=== PATIENT | female | born 1965 | race Two or more races ===

== ENCOUNTER 2018-11-06 18:36 | Emergency (ER) | payer OTHER ==
[~2018-11-06] VITALS: Ht 170.2 cm; Wt 68.9 kg
[2018-11-06] MEDS ORDERED: VITAMIN D5000 UNIT (18:43)
[2018-11-06] MEDS ORDERED: VITAMIN C1000 MG (18:43)
[2018-11-06] MEDS ORDERED: MEDROLPACK (22:42)
[2018-11-06] MEDS ORDERED: SKELAXIN800 MG PO (22:43)
[2018-11-06] MEDS ORDERED: CELEBREX200MG PO (22:43)
[2018-11-06] MEDS ORDERED: MEDROLPACK PO (22:44)
== END 2018-11-06 22:51 | disposition home or self-care (01) ==
LOC: ER 18:36
DX: M54.5 Low back pain (principal)

== ENCOUNTER 2022-03-07 11:11 | Emergency (ER) | payer OTHER ==
[~2022-03-07] VITALS: Ht 152.4 cm; Wt 68.0 kg
[~2022-03-07 11:11] MED LIST: CELEBREX200MG PO; MEDROLPACK; MEDROLPACK PO; SKELAXIN800 MG PO; VITAMIN C1000 MG; VITAMIN D5000 UNIT
== END 2022-03-07 14:44 | disposition home or self-care (01) ==
LOC: ER 11:11
DX: S90.32XA Contusion of left foot, initial encounter (principal); W22.8XXA Striking against or struck by other objects, initial encounter; Y93.9 Activity, unspecified; Y92.018 Other place in single-family (private) house as the place of occurrence of the external cause; Z91.040 Latex allergy status; Z88.6 Allergy status to analgesic agent; Z88.2 Allergy status to sulfonamides

== ENCOUNTER 2022-06-02 14:19 | Emergency (ER) | payer OTHER ==
[~2022-06-02] VITALS: Ht 167.6 cm; Wt 68.0 kg
[2022-06-02] MEDS ORDERED: PRAVASTATIN SOD10 MG PO (14:54)
[2022-06-02] MEDS ORDERED: AVAPRO150 MG PO (14:54)
[2022-06-02] MEDS ORDERED: PROMETRIUM200 MG PO (14:54)
[2022-06-02] MEDS ORDERED: OMEGA 3 1,0001 EACH PO (14:55)
== END 2022-06-02 18:48 | disposition home or self-care (01) ==
LOC: ER 14:19
DX: M95.4 Acquired deformity of chest and rib (principal); E78.00 Pure hypercholesterolemia, unspecified; I10 Essential (primary) hypertension; G43.909 Migraine, unspecified, not intractable, without status migrainosus

== ENCOUNTER 2023-07-27 15:02 | Emergency (ER) | payer OTHER ==
[~2023-07-27] VITALS: Ht 167.6 cm; Wt 69.9 kg
[~2023-07-27 15:02] MED LIST changes: +AVAPRO150 MG PO; +OMEGA 3 1,0001 EACH PO; +PRAVASTATIN SOD10 MG PO; +PROMETRIUM200 MG PO
[2023-07-27 17:02] LABS: HEMATOCRIT 39.3 % (36.0-45.00); HEMOGLOBIN 13.7 g/dL (12.0-15.00); MEAN CELL VOLUME 87.9 fL (80.00-100.00); MEAN CORPUSCULAR HEMOGLOBIN 30.6 pg (27.00-32.0); MEAN CORPUSCULAR HGB CONC 34.8 g/dl (32.0-36.0); PLATELET COUNT 318 K/uL (150-450); RED BLOOD COUNT 4.47 M/uL (4.00-6.00); RED CELL DISTRIBUTION WIDTH 13.3 % (11.5-14.5)
[2023-07-27] MEDS ORDERED: MEDROLPACK PO (18:34)
[2023-07-27] MEDS ORDERED: NORFLEX100MG PO (18:34)
== END 2023-07-27 18:45 | disposition home or self-care (01) ==
LOC: ER 15:02
PROVIDERS: General Practice
DX: M54.50 Low back pain, unspecified (principal); Z88.2 Allergy status to sulfonamides; Z88.8 Allergy status to other drugs, medicaments and biological substances; Z91.040 Latex allergy status